=== PATIENT | female | born 1990 | race Caucasian/White ===

== ENCOUNTER 2017-07-08 16:31 | Emergency (ER) | payer OTHER ==
[~2017-07-08] VITALS: Ht 157.5 cm; Wt 62.0 kg
[~2017-07-08 16:31] MED LIST: ADDERALL; RISPERDOL; Z.0.NO CURRENT MEDS
--- NOTE | 2017-07-08 17:16 | PD ---
HPI Chief Complaint: Psychiatric Symptoms Time Seen by Provider: 17:06 Travel History International Travel<30 days: No Contact w/Intl Traveler<30days: No History of Present Illness HPI 27-year-old female presents to the emergency Department under Fine act by her psychiatrist. Apparently, the patient would not sign a no self-harm agreement. The patient states that she has a lot of issues going on. She states her dog yesterday. She apparently does not get along with her father he wishes to hit him in the head with a 4 x 4. The patient lives with her father. The patient also states that she has gender dysphoria and would like to be addressed with male pronouns. Patient denies any plan to hurt herself at this time. She denies any alcohol use or illicit drug use. She has no medical complaints at this time. PFSH Past Medical History ADHD: No Cancer: No Diabetes: No Psychiatric: No Migraines: No Seizures: No Thyroid Disease: No Ulcer: No Past Surgical History Appendectomy: No Cholecystectomy: No Social History Alcohol Use: No Tobacco Use: No Substance Use: No Allergies-Medications (Allergen,Severity, Reaction): Coded Allergies: penicillin G (Unverified Allergy, Severe, 07/06/17) Reported Meds & Prescriptions Reported Meds & Active Scripts Active Reported Sertraline (Sertraline HCl) 50 Mg Tab 50 Mg PO DAILY Review of Systems Except as stated in HPI: all other systems reviewed are Neg Physical Exam Narrative GENERAL: Well-nourished, well-developed female patient, afebrile. SKIN: Focused skin assessment warm/dry. HEAD: Normocephalic. Atraumatic. EYES: No scleral icterus. No injection or drainage. NECK: Supple, trachea midline. No JVD or lymphadenopathy. CARDIOVASCULAR: Regular rate and rhythm without murmurs, gallops, or rubs. RESPIRATORY: Breath sounds equal bilaterally. No accessory muscle use. Lungs sounds are clear to auscultation. GASTROINTESTINAL: Abdomen soft, non-tender, nondistended. MUSCULOSKELETAL: No cyanosis, or edema. PSYCHIATRIC: No delusional thought processes. No hallucinations. Data Data Last Documented VS Vital Signs Date Time Temp Pulse Resp B/P Pulse Ox O2 Delivery O2 Flow Rate FiO2 07/08/17 22:27 98.3 07/08/17 22:09 69 17 101/62 99 07/08/17 19:00 Room Air Orders Complete Blood Count With Diff (07/08/17 17:05) Comprehensive Metabolic Panel (07/08/17 17:05) Ed Urine Pregnancytest Poc (07/08/17 17:05) Psych Screen (07/08/17 17:05) Drug Screen, Random Urine (07/08/17 17:05) Alcohol (Ethanol) (07/08/17 17:05) Diet Regular Basic (07/08/17 Dinner) Loratadine (Claritin) (07/08/17 22:00) Labs Laboratory Tests Test 07/08/17 07/08/17 18:21 18:40 White Blood Count 9.6 TH/MM3 Red Blood Count 4.35 MIL/MM3 Hemoglobin 12.6 GM/DL Hematocrit 37.7 % Mean Corpuscular Volume 86.7 FL Mean Corpuscular Hemoglobin 28.9 PG Mean Corpuscular Hemoglobin 33.4 % Concent Red Cell Distribution Width 14.3 % Platelet Count 331 TH/MM3 Mean Platelet Volume 8.5 FL Neutrophils (%) (Auto) 64.9 % Lymphocytes (%) (Auto) 26.3 % Monocytes (%) (Auto) 7.5 % Eosinophils (%) (Auto) 0.8 % Basophils (%) (Auto) 0.5 % Neutrophils # (Auto) 6.2 TH/MM3 Lymphocytes # (Auto) 2.5 TH/MM3 Monocytes # (Auto) 0.7 TH/MM3 Eosinophils # (Auto) 0.1 TH/MM3 Basophils # (Auto) 0.1 TH/MM3 CBC Comment DIFF FINAL Differential Comment Sodium Level 136 MEQ/L Potassium Level 3.8 MEQ/L Chloride Level 105 MEQ/L Carbon Dioxide Level 22.9 MEQ/L Anion Gap 8 MEQ/L Blood Urea Nitrogen 8 MG/DL Creatinine 0.68 MG/DL Estimat Glomerular Filtration 105 ML/MIN Rate Random Glucose 86 MG/DL Calcium Level 8.8 MG/DL Total Bilirubin 0.2 MG/DL Aspartate Amino Transf 18 U/L (AST/SGOT) Alanine Aminotransferase 24 U/L (ALT/SGPT) Alkaline Phosphatase 90 U/L Total Protein 7.5 GM/DL Albumin 3.2 GM/DL Ethyl Alcohol Level LESS THAN 3 MG/DL Urine Opiates Screen NEG Urine Barbiturates Screen NEG Urine Amphetamines Screen NEG Urine Benzodiazepines Screen NEG Urine Cocaine Screen NEG Urine Cannabinoids Screen NEG MDM Medical Decision Making Medical Screen Exam Complete: Yes Emergency Medical Condition: Yes Medical Record Reviewed: Yes Differential Diagnosis depression vs. anxiety vs. bipolar disorder Narrative Course 27 year old female presents to the emergency department for psychiatric evaluation under Fine Act by her psychiatrist. CBC, CMP, alcohol level, UDS are ordered and pending. CBC is unremarkable. CMP shows no acute abnormality. Alcohol level is less than 3. UDS is negative. Patient is medically cleared for psychiatric screening and disposition. Mental health screening discussed with the patient. Psychiatric screen ordered. Diagnosis Primary Impression: Medical clearance for psychiatric admission Additional Instructions: Patient is medically cleared for psychiatric screening and disposition. Condition: Stable Lisa Robbins Jul 08, 2017 17:16 Condition: Stable Lisa Robbins Jul 08, 2017 17:16
[2017-07-08 19:00] VITALS: BP 111/64; PULSE 68; RESP 16; O2SAT 96
[2017-07-08 19:14] LABS: AUTOMATED NEUTROPHIL # 6.2 TH/MM3 (1.8-7.7); BASOPHIL # 0.1 TH/MM3 (0-0.2); BASOPHIL % 0.5 % (0.0-2.0); EOSINOPHIL # 0.1 TH/MM3 (0-0.4); EOSINOPHIL % 0.8 % (0.0-4.0); HEMATOCRIT 37.7 % (35.0-46.0); HEMO FLAGS DIFF FINAL; LYMPH % 26.3 % (9.0-44.0); LYMPHOCYTE # 2.5 TH/MM3 (1.0-4.8); MEAN CELL VOLUME 86.7 FL (80.0-100.0); MEAN CORPUSCULAR HEMOGLOBIN 28.9 PG (27.0-34.0); MEAN CORPUSCULAR HGB CONC 33.4 % (32.0-36.0); MONO % 7.5 % (0.0-8.0); NEUT % 64.9 % (16.0-70.0); PLATELET COUNT 331 TH/MM3 (150-450); RED BLOOD COUNT 4.35 MIL/MM3 (4.00-5.30); RED CELL DISTRIBUTION WIDTH 14.3 % (11.6-17.2); WHITE BLOOD COUNT 9.6 TH/MM3 (4.0-11.0)
[2017-07-08 19:35] LABS: ANION GAP 8 MEQ/L (5-15); AST (GOT) 18 U/L (15-37); BICARBONATE 22.9 MEQ/L (21.0-32.0); BLOOD UREA NITROGEN 8 MG/DL (7-18); CHLORIDE 105 MEQ/L (98-107); GLOMERULAR FILTRATION RATE 105 ML/MIN (>89); POTASSIUM 3.8 MEQ/L (3.5-5.1); SODIUM (NA) 136 MEQ/L (136-145)
[2017-07-08 19:37] LABS: ALT (GPT) 24 U/L (10-53)
[2017-07-08] MEDS ORDERED: SERT-132 PO (19:37)
[2017-07-08 19:39] LABS: ALKALINE PHOSPHATASE 90 U/L (45-117); TOTAL BILIRUBIN ADULT 0.2 MG/DL (0.2-1.0)
[2017-07-08 19:56] LABS: ALCOHOL LESS THAN 3 MG/DL (0-5)
[2017-07-08] MEDS ORDERED: LORATADINE 10 MG TAB PO ONE (22:00)
[2017-07-08 22:09] VITALS: BP 101/62; PULSE 69; RESP 17; O2SAT 99
[2017-07-08 22:27] VITALS: TEMP 98.3
[2017-07-09 02:21] VITALS: BP 101/58; PULSE 80; RESP 17; O2SAT 98
[2017-07-09 06:28] VITALS: BP 105/65; PULSE 79; RESP 17; O2SAT 98
[2017-07-09 10:36] VITALS: BP 111/68; PULSE 71; RESP 20
--- NOTE | 2017-07-09 14:45 | PD ---
History of Present Illness Chief Complaint: Psychiatric Symptoms Time Seen by Provider: 14:30 Travel History International Travel<30 Days: No Contact w/Intl Traveler<30days: No Known affected area: No Legal Status Legal Status: Fine Act Fine Act Signed By: Fallon Lopez History of Present Illness: 27-year-old female presented under a Fine act for reported suicidal and homicidal ideation. Patient apparently lives at home with her parents. She is dissatisfied because of her arguments with her father. She apparently does not work and she does not go to school. She states she is too depressed and too anxious to do either. This physician does not currently see any significant objective clinical evidence to support her claims. She has also reportedly applied for Social Security on 3 separate occasions and been turned down each time. Patient and father apparently get into arguments regarding her sexual identity, lack of motivation, etc. At this time, the patient is not suicidal, homicidal or psychotic. PFSH Past Medical History ADHD: No Anemia: Yes Anxiety: Yes Depression: Yes Cancer: No Diabetes: No Diminished Hearing: No Gastrointestinal Disorders: Yes (IBS) Psychiatric: No Integumentary: Yes (eczema) Migraines: No Seizures: No Thyroid Disease: No Ulcer: No Tetanus Vaccination: Unknown Influenza Vaccination: No ?: Not LMP: unknown Past Surgical History Appendectomy: No Cholecystectomy: No Other Surgery: Yes (wisdom teeth extraction) Psychiatric History Psychiatric History Hx Psychiatric Treatment: Patient currently undergoing psychiatric treatment on an outpatient basis. This physician does not feel the patient's treatment has been very effective as the patient continues to seek the role of dysfunctionality. History of Inpatient Treatment: Yes Guns or firearms in home: No Social History Hx Alcohol Use: No Hx Tobacco Use: No Hx Substance Use: No Other Substances Used: REPORTS NONE Hx of Substance Use Treatment: No Allergies-Medications (Allergen,Severity, Reaction): Coded Allergies: penicillin G (Unverified Allergy, Severe, 07/06/17) peanut (Verified Allergy, Unknown, 07/09/17) tree nut (Verified Allergy, Unknown, 07/09/17) Reported Meds & Prescriptions Reported Meds & Active Scripts Active Reported Sertraline (Sertraline HCl) 50 Mg Tab 50 Mg PO DAILY Review of Systems Except as stated in HPI: all other systems reviewed are Neg Exam Alert: Yes [place]: Person, Place, Date, Situation Mood: Calm Affect: Appropriate Speech: Clear, Logical Eye Contact: Normal Memory Intact: Immediate, Recent, Remote Insight/Judgement Adequate MDM Medical Decision Making Medical Record Reviewed: Yes Assessment/Plan Patient's medical record reviewed, this physician spoke with the patient's nurse , and this physician interviewed the patient. At this time, she does not qualify for Fnie act or psychiatric hospitalization. This physician referred her back to her outpatient treating clinician and to her family. There is the ongoing chance the patient may act out to harm herself or others, but this is unpredictable and unavoidable. It would be counter therapeutic at this time to hospitalize the patient or enable her continued behavior. Orders Complete Blood Count With Diff (07/08/17 17:05) Comprehensive Metabolic Panel (07/08/17 17:05) Ed Urine Pregnancytest Poc (07/08/17 17:05) Psych Screen (07/08/17 17:05) Drug Screen, Random Urine (07/08/17 17:05) Alcohol (Ethanol) (07/08/17 17:05) Diet Regular Basic (07/08/17 Dinner) Loratadine (Claritin) (07/08/17 22:00) Diet Regular Basic (07/09/17 Breakfast) Diet Regular Basic (07/09/17 Lunch) Diet Regular Basic (07/09/17 Dinner) Results Vital Signs Date Time Temp Pulse Resp B/P Pulse Ox O2 Delivery O2 Flow Rate FiO2 07/09/17 10:36 71 20 111/68 Room Air 07/09/17 06:28 79 17 105/65 98 Room Air 07/09/17 02:21 80 17 101/58 98 07/08/17 22:27 98.3 07/08/17 22:09 69 17 101/62 99 07/08/17 22:00 20 07/08/17 20:30 18 07/08/17 19:00 68 16 111/64 96 Room Air Laboratory Tests Test 07/08/17 07/08/17 18:21 18:40 White Blood Count 9.6 Red Blood Count 4.35 Hemoglobin 12.6 Hematocrit 37.7 Mean Corpuscular Volume 86.7 Mean Corpuscular Hemoglobin 28.9 Mean Corpuscular Hemoglobin 33.4 Concent Red Cell Distribution Width 14.3 Platelet Count 331 Mean Platelet Volume 8.5 Neutrophils (%) (Auto) 64.9 Lymphocytes (%) (Auto) 26.3 Monocytes (%) (Auto) 7.5 Eosinophils (%) (Auto) 0.8 Basophils (%) (Auto) 0.5 Neutrophils # (Auto) 6.2 Lymphocytes # (Auto) 2.5 Monocytes # (Auto) 0.7 Eosinophils # (Auto) 0.1 Basophils # (Auto) 0.1 CBC Comment DIFF FINAL Differential Comment Sodium Level 136 Potassium Level 3.8 Chloride Level 105 Carbon Dioxide Level 22.9 Anion Gap 8 Blood Urea Nitrogen 8 Creatinine 0.68 Estimat Glomerular Filtration 105 Rate Random Glucose 86 Calcium Level 8.8 Total Bilirubin 0.2 Aspartate Amino Transf 18 (AST/SGOT) Alanine Aminotransferase 24 (ALT/SGPT) Alkaline Phosphatase 90 Total Protein 7.5 Albumin 3.2 Ethyl Alcohol Level LESS THAN 3 Urine Opiates Screen NEG Urine Barbiturates Screen NEG Urine Amphetamines Screen NEG Urine Benzodiazepines Screen NEG Urine Cocaine Screen NEG Urine Cannabinoids Screen NEG Diagnosis Primary Impression: Adjustment disorder with mixed disturbance of emotions and conduct Departure Forms: Tests/Procedures Patient Instructions: General Instructions Condition: Stable Kwasi Scott MD Jul 09, 2017 14:45
== END 2017-07-09 15:13 | disposition home or self-care (01) ==
LOC: NEDAMB 16:31 → NEPJ 07-09 15:13
DX: F43.25 Adjustment disorder with mixed disturbance of emotions and conduct (principal); F41.9 Anxiety disorder, unspecified; K58.9 Irritable bowel syndrome, unspecified; Z88.0 Allergy status to penicillin; Z79.899 Other long term (current) drug therapy
CPT/HCPCS: 80053; 80307; 84703; 85025; 99284